=== PATIENT | male | born 2000 | race Caucasian/White ===

== ENCOUNTER 2021-08-29 09:43 | Outpatient (CLI) | payer OTHER, SELFPAY ==
[2021-08-29 13:11] LABS: Thyroid Stim Hormone (TSH) 2.27 uIU/mL (0.358-3.74)
== END 2021-08-29 23:59 | disposition home or self-care (01) ==
PROVIDERS: PCP Family Medicine; Referring Provider Family Medicine; Visit Provider Family Medicine
DX: F41.9 Anxiety disorder, unspecified (principal)
CPT/HCPCS: 36415; 84443

== ENCOUNTER 2022-03-01 21:20 | Emergency (ER) | payer OTHER, SELFPAY ==
[2022-03-01 21:21] VITALS: BP 131/76; PULSE 46; RESP 15; TEMP 36.2; O2SAT 100; BMI 19.6
--- NOTE | 2022-03-01 22:05 | EDS_ITS ---
HPI HPI - Psych History of Present Illness Chief Complaint: Mental Health Informant: patient Associated Symptoms Associated Symptoms - Psych: Positive for Depressed, Decreased Interest, Hopelessness and Suicidal Thoughts; Negative for Confusion, Paranoia, Visual Hallucinations or Auditory Hallucinations Specific plan (suicidal thought): none Narrative Narrative: Patient states he has had suicidal thoughts since he was a kid. He was put on fluoxetine and buspirone for depression and anxiety maybe 6 months ago or so, he took the medications for 3 or 4 months, then they ran out, he forgot to refill them, and basically has not put forth the effort to go and get the medications again for the last 3 months or so. He states they were helping his mood some, but he thought the side effects outweighed the benefit he was getting from them. He has never sought counseling or therapy but was advised to. He states he was at work tonight, stress has been getting to him which is the only event that occurred tonight that led him to call emergency services for help because he feels suicidal and like he is unable to keep himself safe. He arrives via police escort voluntarily. No recent illness or injury, no drug use or alcohol use. [facility] Medical History (Updated 03/02/22 @ 01:[address] Rico Taylor MD) Anxiety Depression Home Medications NK 03/01/22 [History Last Taken Unknown] Allergy/AdvReac Type Severity Reaction Status Date / Time No Known Allergies Allergy Verified 03/01/22 21:23 Social History (Updated 03/01/22 @ 22:[address] Rico Taylor MD) Smoking Status: Never smoker details: no recent EtOH intake substance use type: does not use ROS ROS ED Constitutional Constitutional ED: Denies chills or fever(s) Eyes Eyes: Denies change in vision or diplopia ENT ENT ED: Denies rhinorrhea or sore throat Cardiovascular Cardiovascular: Denies chest pain or palpitations Respiratory/Chest Respiratory/Chest: Denies cough or dyspnea Gastrointestinal Gastrointestinal: Denies abdominal pain, diarrhea, nausea or vomiting Genitourinary Genitourinary ED: Denies dysuria or hematuria Musculoskeletal Musculoskeletal: Denies back pain or neck pain Integumentary Denies abscess or rash Neurologic Neurologic: Denies headache(s), paresthesias or weakness Psychiatric Psychiatric: Reports depression, suicidal ideation and suicidal thoughts; Denies homicidal ideation EXAM Physical Exam Const Vital Signs: 03/01/22 21:21 03/01/22 23:32 03/02/22 00:30 Temperature 97.2 F L Temperature Source Temporal Pulse Rate 46 L Respiratory Rate 15 16 16 Blood Pressure 131/76 H Blood Pressure Mean 94 Pulse Ox 100 Oxygen Delivery Method Room Air 03/02/22 01:30 03/02/22 02:30 03/02/22 03:30 Temperature Temperature Source Pulse Rate Respiratory Rate 16 14 14 Blood Pressure Blood Pressure Mean Pulse Ox Oxygen Delivery Method 03/02/22 03:48 03/02/22 04:30 03/02/22 05:30 Temperature Temperature Source Pulse Rate 45 L Respiratory Rate 14 14 14 Blood Pressure 109/64 Blood Pressure Mean 79 Pulse Ox 99 Oxygen Delivery Method Room Air 03/02/22 06:42 Temperature Temperature Source Pulse Rate Respiratory Rate 14 Blood Pressure Blood Pressure Mean Pulse Ox Oxygen Delivery Method Positive well nourished and well developed General Appearance ED: well developed and NAD HEENT Reports moist mucous membranes normocephalic and atraumatic Eyes PERRL and EOMs intact bilaterally General Eye ED: Negative for scleral icterus Neck no lymphadenopathy and supple Resp normal respiratory effort and clear to auscultation bilaterally Cardio no murmurs Rate: regular rate Rhythm: regular rhythm GI non-tender and non-distended Auscultation: normoactive bowel sounds Palpation: soft Back/Spine no CVA tenderness and normal ROM Extremity normal to inspection General Extremety ED: Negative for edema General Extremity: Negative for edema Neuro oriented x3, CN's II-XII intact bilaterally, no sensory deficits noted and gait normal Sensorium / Orientation: alert Motor Exam: strength 5/5 throughout Psych mental status grossly normal, thought process normal, cooperative, activity/motor behavior normal, denies hallucinations and denies homicidal ideation Mood & Affect: depressed Thought Content: suicidality Skin Lesions: no lesions Rashes: no rashes MDM MDM MDM Narrative Medical decision making narrative: Alcohol and urine drug screen negative, patient is medically cleared and has a normal exam. He is reasonable and is here voluntarily for help. Discussed with crisis for further evaluation. They did so, and they had similar assessment that I did, patient states if he goes home he feels like he will not be able to keep himself safe even though he does not have a specific plan. He would like to sign himself into a psychiatric facility. [facility]. He is doing well and cooperative. Lab Data Attestation: I reviewed the patient's lab results. Labs: Laboratory Results - last 24 hr 03/01/22 03/01/22 22:18 22:26 Urine Opiates Screen NEGATIVE Urine Methadone Screen NEGATIVE Ur Barbiturates Screen NEGATIVE Ur Phencyclidine Scrn NEGATIVE Ur Amphetamines Screen NEGATIVE MDMA (Ecstasy) Screen NEGATIVE U Benzodiazepines Scrn NEGATIVE Urine Cocaine Screen NEGATIVE U Cannabinoids Screen NEGATIVE Ur Drug Screen Comment Ethyl Alcohol 5.0 Discharge Plan Triage Chief Complaint: Mental Health ED Provider: Rico Taylor Dx/Rx/DC Orders Clinical Impression: Suicidal intent Prescriptions: No Action NK Primary Care Provider: Rodolfo Lozada Referrals: Rodolfo Lozada MD [Primary Care Provider] - Disposition Disposition: Psychiatric Hospital or Unit Discharge Location: [facility]
[2022-03-01 23:32] VITALS: RESP 16
[2022-03-01 23:45] LABS: Amphetamine Urine VISTA NEGATIVE (<1000 ng/mL); Barbiturate Urine VISTA NEGATIVE (< 200 ng/mL); Benzodiazepine Urine VISTA NEGATIVE (< 200 ng/mL); Cocaine Urine VISTA NEGATIVE (< 300 ng/mL); Ecstacy Urine VISTA NEGATIVE (< 500 ng/mL); Methadone Urine VISTA NEGATIVE (< 300 ng/mL); PCP Urine VISTA NEGATIVE (< 25 ng/mL); THC Urine VISTA NEGATIVE (< 50 ng/mL); Vista UDS pH Range 5
[2022-03-02] VITALS (10 sets, daily range): BP systolic 109–116; BP diastolic 63–71; PULSE 45–85; RESP 14–16; O2SAT 98–99
--- NOTE | 2022-03-02 00:26 | NURSING ---
CALLED CRISIS AT [id number]
--- NOTE | 2022-03-02 01:35 | ED.RN ---
CRISIS ON THE PHONE WITH PATIENT AT THIS TIME
--- NOTE | 2022-03-02 06:05 | NURSING ---
ACCEPTED TO [facility] BY DR. BOLIVAR [facility] UN[facility] [phone] REPORT
--- NOTE | 2022-03-02 13:40 | ED.RN ---
CALLED PHYSICIANS FOR AN UPDATED ETA. PER SANJEEV ANOTHER 20 MIN
== END 2022-03-02 14:09 ==
PROVIDERS: Emergency Provider Emergency Medicine; PCP Family Medicine; Visit Provider Emergency Medicine
DX: R45.851 Suicidal ideations (principal); F32.A Depression, unspecified
CPT/HCPCS: 80307; 82077; 87811; 99285